=== PATIENT | female | born 2000 | race Caucasian/White ===

== ENCOUNTER 2023-11-05 08:21 | Emergency (ER) | payer OTHER, SELFPAY ==
[2023-11-05 08:33] VITALS: BP 126/78; PULSE 88; RESP 16; TEMP 36.4; O2SAT 100
--- NOTE | 2023-11-05 08:53 | ED.URI ---
HPI - URI/Sore Throat General Chief Complaint: Upper Respiratory Infection Stated Complaint: Sore Throat Time Seen by Provider: 11/05/23 08:53 Source: patient, RN notes reviewed and old records reviewed Mode of arrival: ambulatory Limitations: no limitations History of Present Illness HPI Narrative: 23 year old female who presents to [facility] care with complaints of sore throat for the past 3days. Patient reports that she has been using throat lozenges for her discomfort, has taken some Motrin and also used allergy medication and some warm tea. Patient reports no known fevers, reports pain with swallowing denies any trismus or any shortness of breath.Patient reports history of seasonal allergies with some sinus drainage noted. MD elicited complaint: sore throat Pertinent past history: seasonal allergies Onset (ago): day(s) (3) Pain scale (0-10): 4 Able to tolerate fluids by mouth: Yes Treatments prior to arrival: ibuprofen and other (allergy med warm tea) Related Data Allergies Allergy/AdvReac Type Severity Reaction Status Date / Time amoxicillin Allergy Intermediate Hives Verified 11/05/23 08:38 Penicillins Allergy Intermediate Hives Verified 11/05/23 08:38 Review of Systems Review of Systems: CONSTITUTIONAL: Denies malaise, chills, sweats, or fever. EYES: Denies visual changes, redness, or discharge. ENT: Reports rhinorrhea, congestion, no sinus pain, no otalgia and positive for sore throat. CARDIOVASCULAR: Denies chest pain, palpitations, or edema. RESPIRATORY: Reports no cough.? Denies dyspnea. GASTROINTESTINAL: Denies abdominal pain, nausea, vomiting, diarrhea SKIN: Denies rash or itching. MUSCULOSKELETAL: Denies myalgia. NEUROLOGIC: Denies headache. All systems reviewed & are unremarkable except as noted in HPI and below PMFSH Past Medical History Medical History (Updated 11/06/23 @ 15:24 by Jada Morales NP) ADD (attention deficit disorder) Anxiety Family History Family History Grandparent Asthma Carcinoma of colon Diabetes mellitus Hypertension Heart disease Cerebrovascular accident Thyroid disease Father Thyroid disease Mother Heart disease Thyroid disease Social History Social History Smoking status: Never smoker Alcohol intake: never Substance use: never Substance use type: does not use Lack of Transportation: No Lack of Food: Never True Current Housing: I Have Housing Concerned About Future Housing: No Difficulty Paying Gas/Electric Bills: No Difficulty Paying for Meds: No Currently Unemployed: No Education: High School Diploma/GED Difficulty w/ Childcare or Family Care: No Living arrangements: other Additional living arrangements comments: single Occupation/Education: student Gender identity (if verbalized by the patient): Female Sexual Orientation (if Verbalized by the Patient): Straight or Heterosexual Comments At time of signature, agree with nursing past medical, surgical, social and family history. There is no relevant family history pertinent to the presenting complaint Exam Narrative: GENERAL: Well-appearing, well-nourished, and in no acute distress. HEAD: Normocephalic EYES: PERRLA, conjunctivae clear ENT: Nares clear, turbinates edematous and erythematous, clear discharge. Mucous membranes moist. TM pearly zaidi with dull light reflex bilaterally; no tragal tenderness. Oropharynx erythematous without lesions. Tonsils enlarged and with exudate, no drooling, no hoarseness, no trismus, uvula midline.post nasal drainage. NECK: Supple. lymphadenopathy CHEST: Clear to auscultation, breath sounds equal. No wheezing, rhonchi, rales, or stridor. No respiratory distress, speaks in full sentences.SAO2 100% on room air HEART: Regular rate and rhythm. No murmur heard. SKIN: Warm, dry, no rash.
== END 2023-11-05 09:07 | disposition home or self-care (01) ==
PROVIDERS: Emergency Provider Registered Nurse; PCP Nurse Practitioner
DX: J03.90 Acute tonsillitis, unspecified (principal); F41.9 Anxiety disorder, unspecified
CPT/HCPCS: 87081; 87880; 99213; G0463

== ENCOUNTER 2023-11-06 02:18 | Emergency (ER) | payer OTHER, SELFPAY ==
--- NOTE | ~2023-11-06 | CT_ITS ---
CT scan of the Neck Technique: 2.5 mm axial scans were obtained through the neck after intravenous administration of 75 c c Omnipaque 350. Coronal and sagittal reconstructions of the neck were obtained. Dose reduction techn ique was used on this scan by utilizing automated exposure control and iterative reconstruction techn ique. The dose-length product (DLP) was 461.67 mGy-cm. Clinical History: Tonsillar swelling Findings: There are multiple enlarged bilateral cervical lymph nodes, most prominent at level 2. Parapharyngeal fat preserved bilaterally. No peritonsillar abscess evident. Parapharyngeal spaces appear normal roxanne aterally. The parotid and submandibular glands appear normal. The pharyngeal mucosal spaces appear normal. No soft tissue masses are seen in the neck. The thyroid gland appears normal. Images of the lung apices reveal no abnormalities. Impression: Bilateral cervical lymphadenopathy, most likely reactive/inflammatory in nature. No abscess identifie d. Reviewed, dictated and finalized at [facility]. Impression: Bilateral cervical lymphadenopathy, most likely reactive/inflammatory in nature . No abscess identified.
[2023-11-06 02:21] VITALS: BP 144/99; PULSE 80; RESP 20; TEMP 36.8; O2SAT 99
[2023-11-06] MEDS: dexAMETHasone SOD PHOS INJ 10 MG/ML 1 ML VIAL IV PUSH (02:54)
[2023-11-06] MEDS: SODIUM CHLORIDE 0.9% IV 1,000 ML 999 ML IV CONT (02:54)
[2023-11-06 02:58] LABS: Basophils Absolute Auto 0.1 K/mm3 (0.0-0.1); Basophils Percent Auto 0.7 % (0.2-1.2); Eosinophils Absolute Auto 0.3 K/mm3 (0-0.3); Eosinophils Percent Auto 2.5 % (0-4.4); Hematocrit 40.3 % (37.0-47.0); Hemoglobin 13.3 g/dL (12.0-15.0); Immature Granulocyte Absolute 0.07 K/mm3 (0.00-0.031); Immature Granulocyte Percent A 0.6 % (0-0.5); Lymphocytes Absolute Auto 5.23 K/mm3 (0.9-3.2); Lymphocytes Percent Auto 45.8 % (18.3-44.2); Mean Corpuscular Hemoglobin 28.5 pg (26-34); Mean Corpuscular Volume 86.3 fl (80-100); Mean Platelet Volume 10.9 fl (7.4-10.4); Monocytes Absolute Auto 0.8 K/mm3 (0.1-0.6); Monocytes Percent Auto 6.7 % (2.6-8.5); Neutrophils Percent Auto 43.7 % (45.5-73.1); Platelet Count Result 238 k/mm3 (150-375); Red Blood Count 4.67 M/mm3 (4.2-5.4); Red Cell Distribution Width 12.7 % (11.5-14.5); White Blood Count 11.4 K/mm3 (4.5-10.0)
[2023-11-06 03:09] LABS: Appearance Urine Clear (Clear); Bilirubin Urine Negative (Negative); Blood Urine Negative (Negative); Color Urine Yellow (Yellow); Glucose Urine UA Negative (Negative); Ketones Urine Negative (Negative); Leukocyte Esterase Ur Negative LEU/UL (Negative); Nitrate Urine Negative (Negative); Protein Urine Negative (Negative); Specific Grav Ur 1.021 (1.001-1.035); Urobilinogen Urine 0.2 mg/dL (<2.0); pH Urine 5.5 (5.0-9.0)
[2023-11-06 03:13] LABS: Alanine Aminotransferase 22 U/L (6-35); Albumin Level 4.3 g/dL (3.5-5.1); Alkaline Phosphatase 99 U/L (38-126); Anion Gap 6 mmol/L (4-12); Aspartate Amino Transferase 25 U/L (14-36); Bilirubin,Total 0.4 mg/dL (0.2-1.3); Blood Urea Nitrogen 13 mg/dL (7-17); Calcium 9.2 mg/dL (8.4-10.2); Carbon Dioxide 28 mmol/L (22-30); Chloride 102 mmol/L (98-107); Estimated CRCL calculation 137 ml/min; Estimated Glomerular Filt Rate > 60; Glucose 98 mg/dL (65-110); Sodium 136 mmol/L (137-145)
[2023-11-06 03:14] LABS: Add Urine Microscopic? NO
[2023-11-06 03:14] LABS: Lactic Acid Reflex 1.1 mmol/L (0.7-2.0)
[2023-11-06 03:20] LABS: Atypical Lymphocytes Present; Platelet Estimate Adequate (Adequate); Schistocytes None Seen
[2023-11-06 03:22] LABS: Strep Group A RT-PCR DETECTED (Negative)
[2023-11-06 03:34] LABS: Influenza A QL RT-PCR Negative (Negative); Influenza B QL RT-PCR Negative (Negative); RSV RNA, RT-PCR Negative (Negative); SARS-CoV-2 RNA PCR Negative (Negative)
--- NOTE | 2023-11-06 03:53 | ED.GENADULT ---
HPI - General Adult General Chief complaint: Unspecified Stated complaint: sore throat Time Seen by Provider: 11/06/23 02:27 History of Present Illness HPI narrative: Patient is a 23-year-old female presents emergency department chief complaint of tonsillitis. The patient reports she was started on Zithromax reports that she has pain with swallowing reports that she was concerned that is taking more effort to swallow. The patient denies stridor denies trismus. Related Data Allergies Allergy/AdvReac Type Severity Reaction Status Date / Time amoxicillin Allergy Intermediate Hives Verified 11/05/23 08:38 Penicillins Allergy Intermediate Hives Verified 11/05/23 08:38 Review of Systems Review of Systems: A 10 system review of systems was completed on the patient and is negative except for what is stated in the HPI. Nursing and ancillary documentation was reviewed. [facility] Past Medical History Medical History Anxiety No significant past medical history Family History Family History Grandparent Asthma Carcinoma of colon Diabetes mellitus Hypertension Heart disease Cerebrovascular accident Thyroid disease Father Thyroid disease Mother Heart disease Thyroid disease Social History Social History Smoking status: Never smoker Alcohol intake: never Substance use: never Substance use type: does not use Lack of Transportation: No Lack of Food: Never True Current Housing: I Have Housing Concerned About Future Housing: No Difficulty Paying Gas/Electric Bills: No Difficulty Paying for Meds: No Currently Unemployed: No Education: High School Diploma/GED Difficulty w/ Childcare or Family Care: No Living arrangements: other Additional living arrangements comments: single Occupation/Education: student Gender identity (if verbalized by the patient): Female Sexual Orientation (if Verbalized by the Patient): Straight or Heterosexual Exam Narrative: GENERAL: Well-appearing, well-nourished, and in no acute distress. HEAD: Normocephalic, atraumatic. EYES: PERRLA and EOMI. ENT: Nares clear, no rhinorrhea or epistaxis. Mucous membranes moist. There is erythema of the posterior oropharynx. There is a fullness present the right tonsil NECK: Supple. CHEST: Clear to auscultation. No respiratory distress. HEART: Regular rate and rhythm. No murmur heard. Normal peripheral pulses. ABDOMEN: Soft, nontender, nondistended, normal active bowel sounds. EXTREMITIES: Normal range of motion. No edema. SKIN: Warm, dry, no rash. NEURO: No focal deficits. Alert and oriented x3. PSYCH: Normal mood and affect. Course Course Emergency Course: Differential diagnosis includes peritonsillar abscess, retropharyngeal abscess, strep pharyngitis Laboratory studies were obtained which showed a white count of 11.4 electrolytes are within normal limits procalcitonin 0.1 urinalysis was negative strep was positive The patient was given 10 mg of Decadron patient will be given clindamycin which will be changed from the patient's thorax was started at urgent care. Patient will be continued on a prednisone pulse dose Vital Signs Vital signs: Vital Signs Temperature 36.8 C 11/06/23 02:21 Pulse Rate 80 11/06/23 02:21 Respiratory Rate 20 11/06/23 02:21 Blood Pressure 144/99 H 11/06/23 02:21 Pulse Oximetry 99 11/06/23 02:21 Oxygen Delivery Room Air 11/06/23 02:21 Temperature 36.8 C 11/06/23 02:21 Pulse Rate 80 11/06/23 02:21 Respiratory Rate 20 11/06/23 02:21 Blood Pressure 144/99 H 11/06/23 02:21 Pulse Oximetry 99 11/06/23 02:21 Oxygen Delivery Room Air 11/06/23 02:21 Medical Decision Making Vital Signs Vital Signs: Vital Signs Temperature 36.8 C 11/06/23 02:2
[2023-11-06 04:00] LABS: Procalcitonin 0.1 ng/mL
[2023-11-06] MEDS: CLINDAMYCIN HCL 150 MG CAP 300 MG PO (06:17)
[2023-11-06 06:40] VITALS: BP 137/71; PULSE 71; RESP 17; O2SAT 100
== END 2023-11-06 06:41 | disposition home or self-care (01) ==
PROVIDERS: Emergency Provider Emergency Medicine; PCP Nurse Practitioner
DX: J02.0 Streptococcal pharyngitis (principal); Z20.822 Contact with and (suspected) exposure to COVID-19
CPT/HCPCS: 36415; 70491; 80053; 81003; 81025; 83605; 84145; 85025; 87637; 87651; 96361; 96374; 99284; A9270; J1100; J7030; Q9967